=== PATIENT | female | born 1950 | race African-American/Black ===

== ENCOUNTER → 2017-01-09 | Outpatient (CLI) | payer MEDICARE, MEDICAID ==
[~2017-01-09] MED LIST: ALLOPURINOL300 MG PO; CIPRO 500MG TA500 MG PO; CIPRO PO; DEPAKOTE PO; DICLOFENAC; DIFLUCAN150 MG PO; DIOVAN PO; DIOVAN/HCT 12.51 TAB PO; FELODIPINE5 MG PO; LORTAB 5/500 501 TAB PO; METRONIDAZOLE500 MG PO; NORCO 325 MG-51 TAB PO; SEPTRA DS 8001 TAB PO; SEROQUEL100 MG PO; SEROQUEL300 MG PO; TRAZODONE HCL100 MG PO; TYLENOL 325MG325 MG PO; ZYLOPRIM 300MG300 MG PO; [UNRECOGNIZED DRUG - OTHER]
== END ==
LOC: MC.RAD 11:14
DX: Z12.31 Encounter for screening mammogram for malignant neoplasm of breast (principal)

== ENCOUNTER → 2018-03-05 | Outpatient (CLI) | payer MEDICARE, MEDICAID | LOC: MC.RAD 02-05 11:00 | DX: Z12.31 Encounter for screening mammogram for malignant neoplasm of breast (principal) ==

== ENCOUNTER → 2019-03-07 | Outpatient (CLI) | payer MEDICARE, MEDICAID | LOC: MC.RAD 03-05 11:00 | DX: Z12.31 Encounter for screening mammogram for malignant neoplasm of breast (principal) ==

== ENCOUNTER → 2020-03-08 | Outpatient (CLI) | payer MEDICARE, MEDICAID ==
[~2020-03-08] MED LIST changes: -ALLOPURINOL300 MG PO; -DEPAKOTE PO; +DEPAKOTE500 MG PO; +DESYREL 100MG100 MG PO; -FELODIPINE5 MG PO; +PLENDIL 5MG TAB5 MG PO; +SEROQUEL 1100 MG/TAB PO; -TRAZODONE HCL100 MG PO
== END ==
LOC: MC.RAD 11:05
DX: Z12.31 Encounter for screening mammogram for malignant neoplasm of breast (principal)

== ENCOUNTER → 2021-04-06 | Outpatient (CLI) | payer MEDICARE, MEDICAID | LOC: MC.RAD 11:26 | DX: Z12.31 Encounter for screening mammogram for malignant neoplasm of breast (principal) ==

== ENCOUNTER → 2022-04-07 | Outpatient (CLI) | payer MEDICARE, MEDICAID | LOC: MC.RAD 11:38 | DX: Z12.31 Encounter for screening mammogram for malignant neoplasm of breast (principal) ==

== ENCOUNTER → 2023-05-10 | Outpatient (CLI) | payer MEDICARE, MEDICAID | LOC: CANSCHCLI → MC.RAD 13:55 | DX: Z12.31 Encounter for screening mammogram for malignant neoplasm of breast (principal) ==